=== PATIENT | male | born 1955 | race Two or more races ===

== ENCOUNTER 2023-09-13 16:55 | Emergency (ER) | payer MEDICARE, MEDICAID ==
[~2023-09-13] VITALS: Ht 188 cm; Wt 80.0 kg
[2023-09-13] MEDS: SODIUM CHLORIDE 0.9% 1,000 ML IV ONE (17:31)
[2023-09-13] MEDS: ONDANSETRON ODT 4 MG TAB PO ONE (17:32)
[2023-09-13 17:39] VITALS: PULSE 84; RESP 16; O2SAT 96
[2023-09-13 17:57] LABS: Basophils # (auto) 0 10 ^3/uL (0-0.2); Basophils % (auto) 0.6 % (0.0-2.0); Eosinophils # (auto) 0 10 ^3/uL (0-0.8); Eosinophils % (auto) 0.6 % (0.0-7.0); Hematocrit 38.5 % (41.0-53.0); Hemoglobin 13.2 g/dL (13.5-17.5); Lymphocytes # (auto) 1.4 10 ^3/uL (0.4-5.4); Lymphocytes % (auto) 23.4 % (10.0-50.0); Mean Corpuscular Hemoglobin 29.4 pg (28.0-32.0); Mean Corpuscular Hgb Conc. 34.4 g/dL (32.0-36.0); Mean Corpuscular Volume 85.6 fL (80.0-100.0); Monocytes # (auto) 0.4 10 ^3/uL (0-1.3); Monocytes % (auto) 7.6 % (0.0-12.0); Neutrophils % (auto) 67.8 % (37.0-80.0); Red Cell Distribution Width 15.2 % (11.8-14.3); White Blood Cell 5.9 10^3/uL (4.4-10.8)
[2023-09-13 18:13] LABS: Chloride 104 mmol/L (98-107); Potassium 3.9 mmol/L (3.5-5.1); Sodium 138 mmol/L (136-145)
[2023-09-13 18:14] LABS: Anion Gap 13 (5-15); Carbon Dioxide 21 mmol/L (20-30)
[2023-09-13 18:15] LABS: Calcium 9.7 mg/dL (8.7-10.4)
[2023-09-13 18:20] LABS: BUN/Creatinine Ratio 14.3 (10.0-20.0); Blood Urea Nitrogen 19 mg/dL (9-23); Glucose 103 mg/dL (74-106); Lipase 28 U/L (12-53)
[2023-09-13 21:27] LABS: Urine Bacteria FEW /hpf (None Seen); Urine Blood Negative /uL (Negative); Urine Clarity Clear (Clear); Urine Color Yellow (Yellow); Urine Hyaline Cast FEW /lpf (0 - 2); Urine Mucus FEW (None Seen); Urine Protein, UAD 1+ (Negative); Urine Specific Gravity 1.028 (1.001-1.035); Urine Urobilinogen 6 mg/dL (Negative); Urine WBC 4 /hpf (0 - 3); Urine pH 5.5 (5.0-9.0)
[2023-09-13 22:02] VITALS: BP 102/63; PULSE 87; RESP 16; TEMP 97.7; O2SAT 98
== END 2023-09-13 22:03 | disposition home or self-care (01) ==
LOC: EDBD 16:55 → ER 17:00
DX: G93.41 Metabolic encephalopathy (principal); E86.0 Dehydration; T67.9XXA Effect of heat and light, unspecified, initial encounter; I10 Essential (primary) hypertension; E11.9 Type 2 diabetes mellitus without complications; X30.XXXA Exposure to excessive natural heat, initial encounter; Y93.89 Activity, other specified; Y92.89 Other specified places as the place of occurrence of the external cause; Y99.8 Other external cause status
CPT/HCPCS: 36415; 80048; 81001; 83605; 83690; 84484; 85025; 96360; 99283; J7030; Q0162